=== PATIENT | female | born 1980 | race Caucasian/White ===

== ENCOUNTER 2016-05-21 16:32 | Emergency (ER) | payer OTHER ==
[~2016-05-21] VITALS: Ht 175.2 cm; Wt 110.2 kg
[~2016-05-21 16:32] MED LIST: AMOXICILLIN500 M2 PO; AMOXICILLIN500 MG PO; CIPRO250 MG PO; CLARITIN10 MG PO; FLEXERIL5 MG PO; FLONASE ALLERG9.9 ML NAS; IBUPROFEN800 MG PO; MACROBID100 M1 PO; MOTRIN600 MG PO; MOTRIN800 MG PO; NAPROSYN500 MG PO; NORCO 325 MG-51 TAB PO; OMEPRAZOLE40 MG PO; PERCOCET 325 MG1 TA2 PO; PREDNICOT20 MG PO; PRENATAL1 TA3 PO; ULTRAM50 MG PO; ZOFRAN ODT4 MG SL
[2016-05-21 16:40] VITALS: BP 141/86
[2016-05-21] MEDS ORDERED: MEDROL DOSEPAK4 MG PO (17:15)
== END 2016-05-21 17:21 | disposition home or self-care (01) ==
LOC: ED 16:32
DX: M54.16 Radiculopathy, lumbar region (principal); F17.200 Nicotine dependence, unspecified, uncomplicated

== ENCOUNTER 2016-06-23 08:22 | Emergency (ER) | payer OTHER ==
[~2016-06-23] VITALS: Wt 108.4 kg
[~2016-06-23 08:22] MED LIST changes: +MEDROL DOSEPAK4 MG PO
[2016-06-23] MEDS ORDERED: IBU800 M1 PO (08:26)
[2016-06-23 08:30] VITALS: BP 144/94
[2016-06-23 09:19] LABS: BASO # 0.1 10*3/uL (0.0-0.1); BASO % 0.5 % (0.0-1.0); EOS # 0.2 10*3/uL (0.0-0.4); HEMATOCRIT 42.4 % (37.0-47.0); HEMOGLOBIN 14.3 g/dl (12.0-16.0); IG # 0.1 10*3/uL (0.0-0.1); LYMPH # 2.1 10*3/uL (1.3-4.4); LYMPH % 19.4 % (27.0-41.0); MEAN CELL VOLUME 86.2 fl (81.0-99.0); MEAN CORPUSCULAR HGB 29.1 pg (27.0-31.0); MEAN CORPUSCULAR HGB CONC 33.7 g/dl (33.0-37.0); MEAN PLATELET VOLUME 11.3 fl (9.6-12.3); MONO # 0.6 10*3/uL (0.1-1.0); NEUT # 7.9 10*3/uL (2.3-7.9); NEUT % 72.6 % (47.0-73.0); PLATELET COUNT AUTOMATED 234 10*3/uL (130-400); RED BLOOD COUNT 4.92 10*6/uL (4.10-5.10); RED CELL DISTRI WIDTH 13.5 % (0-14.5); WHITE BLOOD COUNT 10.9 10*3/uL (4.8-10.8)
[2016-06-23 09:40] LABS: ALBUMIN 3.6 gm/dl (3.1-4.5); ALKALINE PHOSPHATASE 92 U/L (45-117); BILIRUBIN, TOTAL 0.3 mg/dl (0.2-1.0); BUN 13 mg/dl (7-24); C-REACTIVE PROTEIN 0.48 MG/DL (0-0.3); CARBON DIOXIDE 27 mmol/L (21-32); CHLORIDE 110 mmol/L (98-107); EST GLOM FILT AFRICAN AMERICAN > 60 ml/min; GLUCOSE 96 mg/dL (65-99); MAGNESIUM 2.1 mg/dL (1.5-2.1); POTASSIUM 4.2 mmol/L (3.5-5.1); SGOT/AST 17 IU/L (3-35); SGPT/ALT 40 U/L (12-78); SODIUM 142 mmol/L (136-145); TOTAL PROTEIN 7.6 gm/dL (6.4-8.2)
== END 2016-06-23 10:16 | disposition home or self-care (01) ==
LOC: ED 08:22
PROVIDERS: Emergency Medicine
DX: G89.18 Other acute postprocedural pain (principal); F17.200 Nicotine dependence, unspecified, uncomplicated

== ENCOUNTER 2016-08-24 17:55 | Emergency (ER) | payer OTHER ==
[~2016-08-24] VITALS: Ht 175.2 cm; Wt 90.7 kg
[~2016-08-24 17:55] MED LIST changes: +IBU800 M1 PO
[2016-08-24 18:00] VITALS: BP 138/87
[2016-08-24] MEDS ORDERED: NAPROSYN500 MG PO (18:08)
== END 2016-08-24 18:49 | disposition home or self-care (01) ==
LOC: ED 17:55
DX: S50.01XA Contusion of right elbow, initial encounter (principal); R03.0 Elevated blood-pressure reading, without diagnosis of hypertension; F17.200 Nicotine dependence, unspecified, uncomplicated; W10.9XXA Fall (on) (from) unspecified stairs and steps, initial encounter; Y93.9 Activity, unspecified; Y92.9 Unspecified place or not applicable; Y99.9 Unspecified external cause status

== ENCOUNTER 2017-05-06 21:51 | Emergency (ER) | payer OTHER ==
[~2017-05-06] VITALS: Ht 175.2 cm; Wt 99.8 kg
[2017-05-06 21:51] VITALS: BP 111/71
== END 2017-05-06 22:46 | disposition home or self-care (01) ==
LOC: ED 21:51
DX: S60.221A Contusion of right hand, initial encounter (principal); S60.211A Contusion of right wrist, initial encounter; F17.200 Nicotine dependence, unspecified, uncomplicated; Z98.51 Tubal ligation status; W22.03XA Walked into furniture, initial encounter; Y93.89 Activity, other specified; Y92.89 Other specified places as the place of occurrence of the external cause; Y99.9 Unspecified external cause status

== ENCOUNTER 2018-06-05 04:15 | Emergency (ER) | payer OTHER ==
[~2018-06-05] VITALS: Ht 175.2 cm; Wt 90.7 kg
[2018-06-05 04:19] VITALS: BP 125/77
[2018-06-05] MEDS ORDERED: AUGMENTIN 875875 MG PO (04:29)
[2018-06-05] MEDS ORDERED: CLARITIN10 MG PO (04:29)
[2018-08-22] MEDS ORDERED: AUGMENTIN 500500 MG PO (14:42)
== END 2018-06-05 04:47 | disposition home or self-care (01) ==
LOC: ED 04:15
DX: J32.9 Chronic sinusitis, unspecified (principal); F17.200 Nicotine dependence, unspecified, uncomplicated

== ENCOUNTER 2018-12-18 20:27 | Emergency (ER) | payer OTHER ==
[~2018-12-18] VITALS: Ht 175.2 cm; Wt 9.5 kg
[~2018-12-18 20:27] MED LIST changes: +AUGMENTIN 500500 MG PO; +AUGMENTIN 875875 MG PO
[2018-12-18 20:29] VITALS: BP 133/82
[2018-12-18] MEDS ORDERED: ULTRAM50 MG PO (21:20)
== END 2018-12-18 21:22 | disposition home or self-care (01) ==
LOC: ED 20:27
DX: S92.415A Nondisplaced fracture of proximal phalanx of left great toe, initial encounter for closed fracture (principal); K21.9 Gastro-esophageal reflux disease without esophagitis; W20.8XXA Other cause of strike by thrown, projected or falling object, initial encounter; Y93.89 Activity, other specified; Y92.89 Other specified places as the place of occurrence of the external cause; Y99.8 Other external cause status

== ENCOUNTER 2019-05-11 22:25 | Emergency (ER) | payer OTHER ==
[~2019-05-11] VITALS: Ht 175.2 cm; Wt 95.3 kg
[2019-05-11 22:34] VITALS: BP 123/73
[2019-05-11] MEDS ORDERED: CEPHALEXIN500 M1 PO (23:15)
[2019-05-11] MEDS ORDERED: SEPTDS PO (23:15)
== END 2019-05-12 00:22 | disposition home or self-care (01) ==
LOC: ED 22:25
DX: L02.415 Cutaneous abscess of right lower limb (principal); K21.9 Gastro-esophageal reflux disease without esophagitis; F17.200 Nicotine dependence, unspecified, uncomplicated; Z79.899 Other long term (current) drug therapy

== ENCOUNTER 2022-04-02 05:49 | Emergency (ER) | payer OTHER ==
[~2022-04-02 05:49] MED LIST changes: +CEPHALEXIN500 M1 PO; +SEPTDS PO
[2022-04-03] MEDS ORDERED: OMEPRAZOLE MAGN20 MG PO (14:55)
[2022-04-03] MEDS ORDERED: PEPCID20 MG PO (14:55)
== END 2022-04-02 06:20 | disposition left against medical advice (07) ==
LOC: ED 05:49
DX: Z53.21 Procedure and treatment not carried out due to patient leaving prior to being seen by health care provider (principal)

== ENCOUNTER 2022-04-03 10:37 | Emergency (ER) | payer OTHER ==
[~2022-04-03] VITALS: Ht 175.2 cm; Wt 116.1 kg
[2022-04-03 10:44] VITALS: BP 153/80
[2022-04-03 11:24] LABS: BASO # 0.1 10*3/uL (0.0-0.1); BASO % 0.6 % (0.0-1.0); EOS # 0.4 10*3/uL (0.0-0.4); EOS % 3.7 % (1.0-4.0); HEMATOCRIT 41.3 % (37.0-47.0); LYMPH # 1.9 10*3/uL (1.3-4.4); MEAN CELL VOLUME 82.1 fl (81.0-99.0); MEAN CORPUSCULAR HGB 26.2 pg (27.0-31.0); MEAN PLATELET VOLUME 10.8 fl (9.6-12.3); MONO # 0.5 10*3/uL (0.1-1.0); MONO % 4.5 % (3.0-9.0); NEUT # 8.1 10*3/uL (2.3-7.9); NEUT % 73.8 % (47.0-73.0); PLATELET COUNT AUTOMATED 289 10*3/uL (130-400); RED BLOOD COUNT 5.03 10*6/uL (4.10-5.10); RED CELL DISTRI WIDTH 13.9 % (0-14.5); WHITE BLOOD COUNT 10.9 10*3/uL (4.8-10.8)
[2022-04-03 11:59] LABS: ALKALINE PHOSPHATASE 86 U/L (46-116); BUN 7 mg/dl (9-23); CHLORIDE 106 mmol/L (98-107); LIPASE 34 U/L (12-53); POTASSIUM 3.9 mmol/L (3.4-5.1); SGPT/ALT 17 U/L (10-49); TOTAL PROTEIN 7.6 gm/dL (6.0-8.0)
[2022-04-03] MEDS ORDERED: OMEPRAZOLE MAGN20 MG PO (14:55)
[2022-04-03] MEDS ORDERED: PEPCID20 MG PO (14:55)
== END 2022-04-03 15:18 | disposition home or self-care (01) ==
LOC: ED 10:37
PROVIDERS: Physician Assistant
DX: R10.13 Epigastric pain (principal); Z98.890 Other specified postprocedural states; Z98.51 Tubal ligation status; Z87.891 Personal history of nicotine dependence

== ENCOUNTER 2022-06-22 20:08 | Emergency (ER) | payer OTHER ==
[~2022-06-22] VITALS: Ht 175.2 cm; Wt 95.3 kg
[~2022-06-22 20:08] MED LIST changes: +OMEPRAZOLE MAGN20 MG PO; +PEPCID20 MG PO
[2022-06-22 20:20] VITALS: BP 172/97
[2022-06-22] MEDS ORDERED: AMOX-CLAV 875-1 EACH PO (20:41)
== END 2022-06-22 20:52 | disposition home or self-care (01) ==
LOC: ED 20:08
DX: J34.2 Deviated nasal septum (principal); K21.9 Gastro-esophageal reflux disease without esophagitis; Z98.51 Tubal ligation status; Z98.890 Other specified postprocedural states

== ENCOUNTER → 2022-07-29 | Outpatient (CLI) | payer OTHER ==
[~2022-07-29] MED LIST changes: +AMOX-CLAV 875-1 EACH PO
== END | disposition home or self-care (01) ==
LOC: CT 15:00
PROVIDERS: ATTEND Specialist
DX: J32.0 Chronic maxillary sinusitis (principal); J32.2 Chronic ethmoidal sinusitis; J34.2 Deviated nasal septum; M79.89 Other specified soft tissue disorders; J34.89 Other specified disorders of nose and nasal sinuses; M95.0 Acquired deformity of nose

== ENCOUNTER → 2022-08-13 | Day surgery (SDC) | payer OTHER ==
[2022-08-13] VITALS (7 sets, daily range): BP systolic 110–151; BP diastolic 61–81
[~2022-08-13] VITALS: Ht 175.2 cm; Wt 117.0 kg
[~2022-08-13] MED LIST changes: +AUGMENTIN 500500 M1 PO
[2022-08-14 10:07] LABS: ACID FAST SPEC PROCESSING Tissue Grinding (.)
== END | disposition home or self-care (01) ==
LOC: SDC 08-08 09:30
PROVIDERS: ATTEND Specialist
DX: J34.89 Other specified disorders of nose and nasal sinuses (principal); M95.0 Acquired deformity of nose; F14.10 Cocaine abuse, uncomplicated; J32.0 Chronic maxillary sinusitis; K21.9 Gastro-esophageal reflux disease without esophagitis; F17.210 Nicotine dependence, cigarettes, uncomplicated

== ENCOUNTER 2024-05-01 10:52 | Emergency (ER) | payer OTHER ==
[~2024-05-01] VITALS: Ht 175.2 cm; Wt 90.7 kg
[2024-05-01] MEDS ORDERED: IOHEXOL 300 MG/ML 100 ML VIAL IV ONE (11:30)
[2024-05-01] MEDS ORDERED: SODIUM CHLORIDE 0.9% 1,000 ML IV ONE (11:30)
[2024-05-01 11:33] LABS: BASO # 0.1 10*3/uL (0.0-0.1); BASO % 0.7 % (0.0-1.0); EOS # 0.4 10*3/uL (0.0-0.4); EOS % 3.7 % (1.0-4.0); HEMATOCRIT 39.2 % (37.0-47.0); MEAN CELL VOLUME 87.5 fl (81.0-99.0); MEAN CORPUSCULAR HGB 27.7 pg (27.0-31.0); MEAN CORPUSCULAR HGB CONC 31.6 g/dl (33.0-37.0); MEAN PLATELET VOLUME 11.6 fl (9.6-12.3); MONO # 0.6 10*3/uL (0.1-1.0); MONO % 6.2 % (3.0-9.0); NEUT # 7.3 10*3/uL (2.3-7.9); NEUT % 70.2 % (47.0-73.0); PLATELET COUNT AUTOMATED 216 10*3/uL (130-400); RED BLOOD COUNT 4.48 10*6/uL (4.10-5.10); RED CELL DISTRI WIDTH 13.7 % (0-14.5); WHITE BLOOD COUNT 10.4 10*3/uL (4.8-10.8)
[2024-05-01] MEDS ORDERED: IOHEXOL 300 MG/ML 100 ML VIAL ONE (11:55)
[2024-05-01] MEDS ORDERED: MG-AL HYDROXIDE/SIMETICONE 30 ML UDC PO STA (12:00)
[2024-05-01] MEDS ORDERED: Dicyclomine Hydrochloride 20 MG/10 ML OSYR PO STA (12:00)
[2024-05-01] MEDS ORDERED: Lidocaine Hydrochloride 15 ML UDC PO STA (12:00)
[2024-05-01 12:03] LABS: ALKALINE PHOSPHATASE 68 U/L (46-116); BUN 14 mg/dl (9-23); CHLORIDE 106 mmol/L (98-107); LIPASE 126 U/L (12-53); POTASSIUM 3.4 mmol/L (3.4-5.1); SGPT/ALT 8 U/L (5-49)
[2024-05-01] MEDS ORDERED: HYDROmorphONE Hydrochloride 0.5 MG/0.5 ML SYRINGE IV ONE (12:30)
[2024-05-01] MEDS ORDERED: FAMOTIDINE 20 MG TAB PO ONE (12:30)
[2024-05-01 13:00] VITALS: BP 125/77
[2024-05-01 13:01] LABS: BILIRUBIN Negative (Negative); BLOOD Negative (Negative); CLARITY Clear (Clear); COLOR Yellow (Yellow); GLUCOSE Negative (Negative); KETONE Negative (Negative); LEUKO ESTERASE Negative (Negative); NITRITE Negative (Negative); SPECIFIC GRAVITY >= 1.030 (1.001-1.030)
[2024-05-01 13:11] LABS: BACTERIA 2+; MUCOUS 1+
[2024-05-01] MEDS ORDERED: cefTRIAXone Sodium 1 GM/10 ML SYR IV ONE (13:20)
[2024-05-01] MEDS ORDERED: METRONIDAZOLE500 M1 PO (13:54)
[2024-05-01] MEDS ORDERED: CIPRO500 MG PO (13:54)
== END 2024-05-01 14:20 | disposition home or self-care (01) ==
LOC: ED 10:52
PROVIDERS: Nurse Practitioner
DX: K52.9 Noninfective gastroenteritis and colitis, unspecified (principal); K21.9 Gastro-esophageal reflux disease without esophagitis; Z98.890 Other specified postprocedural states; Z98.51 Tubal ligation status

== ENCOUNTER 2024-05-28 19:48 | Emergency (ER) | payer OTHER ==
[~2024-05-28] VITALS: Ht 175.2 cm; Wt 90.7 kg
[~2024-05-28 19:48] MED LIST changes: +CIPRO500 MG PO; +METRONIDAZOLE500 M1 PO
[2024-05-28 19:57] VITALS: BP 163/68
[2024-05-28] MEDS ORDERED: IBUPROFEN 800 MG TAB PO ONE (20:05)
== END 2024-05-28 21:01 | disposition home or self-care (01) ==
LOC: ED 19:48
DX: S53.402A Unspecified sprain of left elbow, initial encounter (principal); Z79.2 Long term (current) use of antibiotics; Z87.42 Personal history of other diseases of the female genital tract; W22.8XXA Striking against or struck by other objects, initial encounter; Y93.89 Activity, other specified; Y92.89 Other specified places as the place of occurrence of the external cause; Y99.8 Other external cause status

== ENCOUNTER 2024-10-09 21:46 | Emergency (ER) | payer SELFPAY ==
[~2024-10-09] VITALS: Ht 175.2 cm; Wt 95.3 kg
[2024-10-09 22:09] VITALS: BP 152/82
[2024-10-09] MEDS ORDERED: NAPROXEN250 MG PO (23:19)
== END 2024-10-09 23:33 | disposition home or self-care (01) ==
LOC: ED 21:46
DX: M25.561 Pain in right knee (principal); R22.41 Localized swelling, mass and lump, right lower limb; Z79.899 Other long term (current) drug therapy; Z87.42 Personal history of other diseases of the female genital tract; X50.1XXA Overexertion from prolonged static or awkward postures, initial encounter; Y93.89 Activity, other specified; Y92.89 Other specified places as the place of occurrence of the external cause; Y99.8 Other external cause status

== ENCOUNTER 2024-10-13 06:29 | Emergency (ER) | payer SELFPAY ==
[~2024-10-13] VITALS: Ht 175.2 cm; Wt 95.3 kg
[~2024-10-13 06:29] MED LIST changes: +NAPROXEN250 MG PO
[2024-10-13 07:11] LABS: BASO # 0.0 10*3/uL (0.0-0.1); BASO % 0.4 % (0.0-1.0); EOS # 0.2 10*3/uL (0.0-0.4); EOS % 1.6 % (1.0-4.0); MEAN CELL VOLUME 85.4 fl (81.0-99.0); MEAN CORPUSCULAR HGB 27.2 pg (27.0-31.0); MEAN PLATELET VOLUME 11.4 fl (9.6-12.3); MONO # 0.5 10*3/uL (0.1-1.0); MONO % 4.6 % (3.0-9.0); NEUT # 8.5 10*3/uL (2.3-7.9); NEUT % 78.3 % (47.0-73.0); NUCLEATED RED BLOOD CELL 0.0 % (0.0-0.0); NUCLEATED RED BLOOD CELL 0.0 10*3/uL (0.0-0.0); PLATELET COUNT AUTOMATED 212 10*3/uL (130-400); RED CELL DISTRI WIDTH 14.1 % (0-14.5)
[2024-10-13 07:31] LABS: BUN 14 mg/dl (9-23)
[2024-10-13] MEDS ORDERED: PEPCID20 MG PO (07:40)
[2024-10-13 07:48] VITALS: BP 171/103
== END 2024-10-13 07:51 | disposition home or self-care (01) ==
LOC: ED 06:29
PROVIDERS: Internal Medicine
DX: R07.89 Other chest pain (principal); R06.02 Shortness of breath; R61 Generalized hyperhidrosis; Z87.42 Personal history of other diseases of the female genital tract